=== PATIENT | female | born 1970 | race Caucasian/White ===

== ENCOUNTER 2025-04-26 13:11 | Outpatient (CLI) | payer BC, SELFPAY ==
[2025-04-26 21:37] LABS: Potassium* 4.3 mmol/L (3.6-5.1)
--- OUTSIDE RECORDS SUMMARY | 2025-04-27 00:23 | XMS_ITS | Clinical Summary ---
Author Organization [employer] [facility] Address [address] [place] [address] Care Team Providers Care Retort Cooler Name Role Phone Jimenez Cho PA-C Primary Care Provider [phone] Allergies Active Allergy Reactions Criticality Noted Date Comments Erythromycin Rash 11/28/2013 Hydrocodone-Acetaminophen Nausea And Vomiting Medium 1 12/10/2016 Oxycodone Vomiting 12/08/2013 Sulfamethoxazole-Trimethoprim Hives 2013 Sulfa (Sulfonamide Antibiotics) Hives 01/2014 Medications ascorbic acid (VITAMIN C) 500 mg tablet Take 250 mg by mouth once daily. Active CALCIUM CARBONATE (CALCIUM 500 ORAL) Take 1 Tab by mouth once daily. Active multivitamin (MVI) tablet Take 1 tablet by mouth once daily. Active ESTRADIOL (ESTRACE VAGL) Insert into the vagina. Active Cetirizine (ZYRTEC) 10 mg cap Take by mouth once daily. Active polyethylene glycol (MIRALAX) 17 g powder for solution Take 1 Packet by mouth once daily. Active alendronate sodium (ALENDRONATE ORAL) Take by mouth. 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 Family History Medical History Relation Name Comments BRCA1 Negative Maternal Aunt 1 BRCA2 Negative Maternal Aunt 1 Cancer Maternal Aunt 2 [place] c ancer (Fatou's Mother) Cancer-breast Mother n/a BRCA 1 mutatio n Cancer-ovarian Mother n/a BRCA1 Positive Other Fatou Cancer-breast Other Fatou Maternal Cousi n Cancer Paternal Grandmother Stomach BRCA1 Positive Sister 1 half sister Share a mothe r BRCA1 Negative Sister 2 half sister Share a mothe r BRCA2 Negative Sister 2 half sister Relation Name Status Comments Maternal Aunt 1 Maternal Aunt 2 Mother n/a Other Fatou Alive Paternal Grandmother Sister 1 half sister Alive Sister 2 half sister Alive Social History Tobacco Use Types Packs/Day Years Used Date Smoking Tobacco: Never Smokeless Tobacco: Never Alcohol Use Standard Drinks/Week Comments Yes 0 (1 standard drink = 0.6 oz pur e alcohol) weekly Comments Unknown Sex and Gender Information Value Date Recorded Sex Assigned at Not on file Legal Sex Female 5:29 AM POWER PLANT ENGINEER Gender Identity Not on file Sexual Orientation Not on file Occupation Industry Job Start Date Job End Date HOMEMAKER Not on file Not on file Not on file Obstetrics History Para Term AB IAB SAB Ectopic Multiple Livin g Live Births 3 3 3 Date Outcome GA Total Labor Labor/2nd/3rd Weight Sex Type Anes PTL Gabby A1 A5 Name Clin Term Term Term Comments - 3 Last Filed Vital Signs Vital Sign Reading Time Taken Comments Blood Pressure 123/59 11/09/2024 1:03 PM POWER PLANT ENGINEER Pulse 68 11/09/2024 1:03 PM POWER PLANT ENGINEER Temperature 36.8 C (98.3 F) 11/09/2024 1:03 PM POWER PLANT ENGINEER Respiratory Rate 16 07/28/2019 2:19 PM CDT Oxygen Saturation 93% 10/09/2017 3:00 PM POWER PLANT ENGINEER Inhaled Oxygen Concentration - - Weight 65.1 kg (143 lb 9.6 oz) 11/09/2024 1:03 P M POWER PLANT ENGINEER Height 162.6 cm (5' 4) 11/09/2024 1:03 PM POWER PLANT ENGINEER Body Mass Index 24.65 11/09/2024 1:03 PM POWER PLANT ENGINEER Plan of Treatment Health Maintenance Due Date Last Done Comments Tdap 1980 Depression screening for age 12+ 1981 HIV for age 15-65 1984 Hepatitis C screening for ag e 18-79 1987 Hepatitis B series for 19+ ( 1 of 3 - 19+ 3-dose series) 1988 Tetanus booster 1989 Colonoscopy through age 75 2014 Lipids for age 45-75 2014 Pap test for age 21-65 07/26/2017 4, 07/26/2014, 05/06/2011, Additional history exists Pneumococcal series for age 50+ (1 of 1 - PCV) 2019 Zoster (shingles) series for age 50+ (1 of 2) 2019 COVID-19 vaccine series ( season) 2024 10/05/2023, 11/08/2021, 01/25/2021, Additional history exists Influenza Vaccine (Season Ended) 2025 BMI (ht and wt on same day) for age 18+ 11/09/2025 11/09/2024, 07/20/2018, 06/09/2017, Additional history exists Medical Devices Implanted Type Area Clinical Dermatologist Device Identifier Shelf Expiration Date Model / Serial / Lot Mesh Md Leonel Sun Md Contour Perforated - [id number] Implanted:Qty: 1 on 04/13/2017 by Laurel Mock MD at [facility] Bilateral: Chest [employer] 01/30/2019 [id number] / / [id number] Description:RIGHT BREAST LOT # [id number] LEFT BREAST LOT # [id number] [facility] - [id number] Implanted:Qty: 1 on 10/09/2017 by Gene Bailey Cha, MD at [facility] Left: Breast [employer] - Inamed 10/26/2021 SSX-525 / [id number] / [id number] [id number] Breast Implant Implanted:Qty: 1 on 10/09/2017 by Gene Bailey Cha, MD at [facility] Right: Breast 10/24/2021 SSX-545 / / [id number] Explanted Type Area Clinical Dermatologist Device Identifier Shelf Expiration Date Model / Serial / Lot Employment Representative Breast 400cc Natrelle Tab Mod Extra Prjctn Saline - [id number] Implanted:Qty: 1 on 04/13/2017 by Laurel Mock MD at [facility] Explanted:Qty: 1 on 06/16/2017 at [facility] Right: Chest [employer] - Inamed 11/05/2020 133MX-12- T# / [id number] / Employment Representative Breast 400cc Natrelle Tab Mod Extra Prjctn Saline - [id number] Implanted:Qty: 1 on 04/13/2017 by Gene Bailey Cha, MD at [facility] Explanted:Qty: 1 on 10/09/2017 at [facility] Left: Chest [employer] - Inamed 06/17/2019 133MX-12- T# / [id number] / Employment Representative Breast 400cc Natrelle Tab Mod Extra Prjctn Saline - [id number] Implanted:Qty: 1 on 06/16/2017 by Indiana Avilez MD at [facility] Explanted:Qty: 1 on 10/09/2017 at [facility] Right: Breast [employer] - Inamed 01/20/2021 133MX-12- T# / [id number] / Description:() [id number] 2021-01-20 [id number] Natrelle 133MX-12-T Tissue Employment Representative s/Suture Tabs Biocell Moderate Height Extra Projection With Magna-Finder Xact & 21G Needle Infusion Set Procedures Procedure Name Priority Date/Time Associated Diagnosis Comments HPV HIGH RISK Timed 07/26/2014 1:40 PM CDT from Last 3 Months or Most Recently Relevant to Health Maintenance Results * HPV THIN PREP (07/26/2014 1:40 PM CDT) SPECIMEN/SOURC E Thin prep [facility] HPV RESULTS High Risk HPV Negative. HPV types 16,18,31, 33,35,39, 45,51,52, 56,58,59, 66 and 68 DNA were undetecta ble or below the pre-set threshold . Methodolo gy: Cierra Joseluis 4800 HPV Test [facility] 07/26/2014 1:40 PM CDT 07/27/2014 1:26 PM CDT us Helena Momin MICROBIOLOGY Final Result [facility] INTERNAL ZIP [address] [place] [address] from Last 3 Months or Most Recently Relevant to Health Maintenance Insurance [facility] [place] FED EMP Advance Directives * Full Code (Latest Code Status on File) Date Activated Date Inactivated Comments 10/09/2017 10:45 AM 10/09/2017 5:39 PM Question Answer Comments Code Status Discussion: Not Discussed * Full Code Date Activated Date Inactivated Comments 06/16/2017 11:14 AM 06/16/2017 2:57 PM * Full Code Date Activated Date Inactivated Comments 06/16/2017 8:51 AM 06/16/2017 11:14 AM * Full Code Date Activated Date Inactivated Comments 04/13/2017 1:51 PM 04/14/2017 5:33 PM Question Answer Comments Code Status Discussion: Not Discussed * Full Code Date Activated Date Inactivated Comments 12/08/2013 11:11 AM 12/09/2013 2:27 AM Care Teams Retort Cooler Relationship Specialty Start Date End Date Jimenez Cho PA-C [address] [place] [address] PCP - General Physician Nuclear Plant Operator 07/27/19
--- OUTSIDE RECORDS SUMMARY | 2025-04-27 00:23 | XMS_ITS | Clinical Summary ---
Author Organization [facility] Address [address] [place] [address] Care Team Providers Care Custom Garment Designer Name Role Phone [facility], [facility] Primary Care Provider Allergies Active Allergy Reactions Criticality Noted Date Comments Bactrim Rash Low 02/26/2009 Erythromycin Nausea and Vomiting 02/26/2009 Lactose Other (See Comments) 09/13/2012 diarrhea Oxycodone Nausea and Vomiting 09/13/2012 Sulfa Antibiotics Hives 09/20/2012 Medications MULTIVITAMIN ORIndications:Rou sam gynecological examination Take 1 tablet by mouth daily Active betamethasone valerate (VALISONE) 0.1 % cream Externally apply topically as needed. 9 Active fluconazole (DIFLUCAN) 150 MG tablet Take 150 mg by mouth as needed. 9 Active cetirizine (ZYRTEC) 10 MG tablet Take 10 mg by mouth daily. Active calcium carbonate-vitamin D (CALCIUM + D) 600-200 MG-UNIT TABS Take 1 tablet by mouth daily. Active ascorbic acid (VITAMIN C) 250 MG CHEW Take 1,000 mg by mouth daily. Active Placebo (COMPRESSION STOCKINGS)Indicat ions:S/P knee replacement 1 each continuous. 1 each 0 2 Active HYDROcodone-aceta minophen 5-325 MG per tabletIndications :S/P knee replacement Take 2 tablets by mouth every 6 hours as needed for pain. 60 tablet 0 2 Active Active Problems Problem Noted Date Diagnosed Date Arthritis of knee, right 09/21/2012 CARDIOVASCULAR SCREENING; LDL GOAL LESS THAN 160 09/01/2010 Resolved Problems Problem Noted Date Diagnosed Date Resolved Date Stiffness of joint, not else where classified, hand 10/09/2010 01/01/2011 Stiffness of joint, not else where classified, forearm 10/09/2010 01/01/2011 Pain in limb 10/09/2010 01/01/2011 Other closed fractures of di stal end of radius (alone) 10/09/2010 01/01/2011 Other postprocedural status(V45.89) 10/09/2010 01/01/2011 Family History Medical History Relation Comments Breast Cancer Mother Relation Status Comments Mother Social History Tobacco Use Types Packs/Day Years Used Date Smoking Tobacco: Never Smokeless Tobacco: Never Alcohol Use Standard Drinks/Week Comments Yes 0 (1 standard drink = 0.6 oz pur e alcohol) socially Adolescent Education Answer Date Record ed Getting School Help Needed Not on file 05/09 Comments No Sex and Gender Information Value Date Recorded Sex Assigned at Not on file Legal Sex Female 3:51 AM RANCH MANAGER Gender Identity Not on file Sexual Orientation Not on file Last Filed Vital Signs Vital Sign Reading Time Taken Comments Blood Pressure 91/53 09/22/2012 4:10 PM RANCH MANAGER Pulse - - Temperature 36.9 C (98.4 F) 09/22/2012 4:10 PM RANCH MANAGER Respiratory Rate 18 09/22/2012 4:48 PM RANCH MANAGER Oxygen Saturation 99% 09/22/2012 4:10 PM RANCH MANAGER Inhaled Oxygen Concentration - - Weight 59 kg (130 lb) 09/20/2012 7:00 AM RANCH MANAGER Height 162.6 cm (5' 4) 09/20/2012 7:00 AM RANCH MANAGER Body Mass Index 22.31 09/20/2012 7:00 AM RANCH MANAGER Plan of Treatment Health Maintenance Due Date Last Done Comments ADVANCE CARE PLANNING 1969 ANNUAL REVIEW OF HM ORDERS 1969 CT COLONOGRAPHY 1969 FIT 1969 FLEX SIG 1969 sDNA (Cologuard) 1969 HIV SCREENING 1984 HEPATITIS C SCREENING 1987 HEPATITIS B VACCINE (1 of 3 - 19+ 3-dose series) 1988 MAMMO SCREENING 04/03/2018 04/03/2016, 03/02, 12/20/2013, Additional history exists DTAP/TDAP/TD VACCINE (1 - Tdap) 06/01/2019 05/31/2019 PNEUMOCOCCAL VACCINE 50+ YEARS (1 of 1 - PCV) 2019 ZOSTER VACCINE (2 of 2) 09/26/2021 08/01/2021 YEARLY PREVENTIVE VISIT 07/22/2023 07/22/20, 05/21/2021, 05/21/2021, Additional history exists COVID-19 VACCINE ( season) 2024 10/05/2023, 11/08/2021, 01/25/2021, Additional history exists PHQ-2 (once per calendar year) 2024 DIABETES SCREENING 08/18/2026 08/18/2023, 1 , 09/22/2012 HPV TEST 07/22/2027 07/22/2022, 07/26/2014 PAP 07/22/2027 07/22/2022, 07/04, 02/26/2009, Additional history exists LIPID 08/18/2028 08/18/2023 COLONOSCOPY 08/23/2031 08/23/2021, 08/02/2021 COLORECTAL CANCER SCREENING 08/23/2031 INFLUENZA VACCINE Completed 08/30/2024, , 07/22/2022, Additional history exists HPV VACCINE Aged Out No longer eligi ble based on patient's age to complete this topic MENINGITIS VACCINE Aged Out No longer eligible based on patient's age to complete this topic Medical Devices Implanted Type Area Utility Spray Operator Device Identifier Shelf Expiration Date Model / Serial / Lot Bone Cement Simplex Full Dose [id number] Implanted:Qty: 1 on 09/21/2012 by Jesus Manuel MD at [facility] Right: Knee 03/01/2015 [id number] / / [id number] Imp Comp Patella Tri X3 Ps 29x8mm [id number] Implanted:Qty: 1 on 09/21/2012 by Jesus Manuel MD at [facility] Right: Knee 07/02/2017 [id number] / / [id number] Imp Comp Femoral Strk Ana Xsm Kn [id number] Implanted:Qty: 1 on 09/21/2012 by Jesus Manuel MD at [facility] Right: Knee 07/02/2017 [id number] / / [id number] Procedures Procedure Name Priority Date/Time Associated Diagnosis Comments GLUCOSE Routine 08/18/2023 9:31 AM CDT Encounter for screening for diabetes mellitus LIPID PROFILE Routine 08/18/2023 9:31 AM CDT Encounter for screening for lipoid disorders GYNECOLOGIC CYTOLOGY Routine 07/22/2022 10:48 AM CDT Encounter for gynecological examination (general) (routine) without abnormal findings [ICD-10-CM] HPV HIGH RISK TYPES DNA CERVICAL Routine 07/22/2022 10:48 AM CDT Encounter for gynecological examination (general) (routine) without abnormal findings [ICD-10-CM] MA SCREENING BILATERAL W/ BHARAT Routine 04/03/2016 1:48 PM CDT Visit for screening mammogram from Last 3 Months or Most Recently Relevant to Health Maintenance Results * Lipid Profile (08/18/2023 9:31 AM CDT) Cholesterol 169 <200 mg/dL 08/18/2023 7:39 PM CDT [facility] Triglycerides 106 <150 mg/dL 08/18/2023 7:39 PM CDT [facility] Direct Measure HDL 53 >=50 mg/dL 2022 7:39 PM CDT [facility] LDL Cholesterol Calculated 95 <=100 mg/dL 08/18/2023 7:39 PM CDT [facility] Non HDL Cholesterol 116 <130 mg/dL 08/18/2023 7:39 PM CDT [facility] Blood BLOOD SPECIMEN / Unknown Client Draw / Unknown 08/18/2023 9:31 AM CDT 08/18/2023 4:02 PM CDT Narrative [facility] - 08/18/2023 7:39 PM CDT Cholesterol Desirable: <200 mg/dL Triglycerides Normal: Less than 150 mg/dL Borderline High: 150-199 mg/dL High: 200-499 mg/dL Very High: Greater than or equal to 500 mg/dL Direct Measure HDL Female: Greater than or equal to 50 mg/dL Male: Greater than or equal to 40 mg/dL LDL Cholesterol Desirable: <100mg/dL Above Desirable: 100-129 mg/dL Borderline High: 130-159 mg/dL High: 160-189 mg/dL Very High: >= 190 mg/dL Non HDL Cholesterol Desirable: 130 mg/dL Above Desirable: 130-159 mg/dL Borderline High: 160-189 mg/dL High: 190-219 mg/dL Very High: Greater than or equal to 220 mg/dL Kendy Landeros MD LAB - BLOOD ORDERABLES Final Result LABORATORY [facility] [place] [facility] [address] [facility], [address] [place] [address], [facility] [phone] * Glucose (08/18/2023 9:31 AM CDT) Glucose 73 70 - 99 mg/dL 08/18/2023 7:39 PM CDT [facility] Patient Fasting > 8hrs? Yes 08/18/2023 7:39 PM CDT [facility] Blood BLOOD SPECIMEN / Unknown Client Draw / Unknown 08/18/2023 9:31 AM CDT 08/18/2023 4:02 PM CDT us Kendy Landeros MD LAB - BLOOD ORDERABLES Final Result Performing Organization Address City/[facility]/ZIP Co de Phone Number LABORATORY [facility] [place] [facility] [address] [facility], [address] [place] [address], [facility] [phone] * Gynecologic Cytology (PAP) (07/22/2022 10:48 AM CDT) Interpretation Negative for Intraepithelial Lesion or Malignancy (NILM) 07/24/2022 3:28 PM CDT [facility] at 1528 CDT Comment Papanicolaou Test Limitations: Cervical cytology is a screening test with limited sensitivity, and regular screening is critical for cancer prevention. Pap tests are primarily effective for the diagnosis/prevent ion of squamous cell carcinoma, not adenocarcinoma or other cancers. 07/24/2022 3:28 PM CDT [facility] Specimen Adequacy Satisfactory for evaluation, endocervical/langley sformation zone component present 07/24/2022 3:28 PM CDT [facility] Clinical Information none 07/24/2022 3:28 PM CDT [facility] LMP/Menopause Date N/A 07/24/2022 3:28 PM CDT [facility] Reflex Testing Yes regardless of result 07/24/2022 3:28 PM CDT [facility] Previous Abnormal? No 07/24/2022 3:28 PM CDT [facility] Previous Abnormal Diagnosis N/A 07/24/2022 3:28 PM CDT [facility] Performing Labs The technical component of this testing was completed at [facility] 07/24/2022 3:28 PM CDT [facility] Brushing CERVIX UTERI STRUCTURE / Unknown 07/22/2022 10:48 AM CDT 07/22/2022 3:51 PM CDT Kendy Landeros MD LAB - WILLY KRAFT Final Result [facility] Specialty Lab [address] [facility], [address] [place] [address], [facility] [phone] * HPV High Risk Types DNA Cervical (07/22/2022 10:48 AM CDT) Other HR HPV Negative Negative 07/28/2022 2:13 PM CDT [facility] HPV16 DNA Negative Negative 07/28/2022 2:13 PM CDT [facility] HPV18 DNA Negative Negative 07/28/2022 2:13 PM CDT [facility] FINAL DIAGNOSIS This patient's sample is negative for HPV DNA. This test was developed and its performance characteristics determined by the [facility], [facility]. It has not been cleared or approved by the FDA. The laboratory is regulated under CLIA as qualified to perform high-complexity testing. This test is used for clinical purposes. It should not be regarded as investigational or for research. METHODOLOGY: The Cierra Joseluis 4800 system uses automated extraction, simultaneous amplification of HPV (L1 region) and beta-globin, followed by real time detection of fluorescent labeled HPV and beta globin using specific oligonucleotide probes. The test specifically identifies types HPV 16 DNA and HPV 18 DNA while concurrently detecting the rest of the high risk types (31, 33, 35, 39, 45, 51, 52, 56, 58, 59, 66 or 68). COMMENTS: This test is not intended for use as a screening device for woman under age 30 with normal cervical cytology. Results should be correlated with cytologic and histologic findings. Close clinical followup is recommended. 07/28/2022 2:13 PM CDT [facility] Brushing CERVIX UTERI STRUCTURE / Unknown Non-blood Collection / Unknown 07/22/2022 10:48 AM CDT 07/25/2022 8:58 AM CDT us Kendy Landeros MD LAB - BLOOD ORDERABLES Final Result [facility] [address] [facility], [address] [place] [address], [facility] [phone] * MA Screen Bilateral w/Bharat (04/03/2016 1:48 PM CDT) Anatomical Region Laterality Modality Breast Bilateral Mammography Impressions 04/03/2016 2:03 PM CDT IMPRESSION: BI-RADS CATEGORY: 1 - NEGATIVE. RECOMMENDED FOLLOW-UP: Annual Mammography Exam results letter mailed to patient. VANESA MANZANARES MD Narrative 04/03/2016 2:03 PM CDT SCREENING MAMMOGRAM, BILATERAL, DIGITAL w/CAD w/TOMOSYNTHESIS - 04/03/2016 1:48 PM. BREAST SYMPTOMS: No current breast complaints. COMPARISON: 03/15/2015, 06/16/2011. BREAST DENSITY: Scattered fibroglandular densities. COMMENTS: No findings of suspicion for malignancy. Procedure Note Vanesa Manzanares MD - 04/03/2016 SCREENING MAMMOGRAM, BILATERAL, DIGITAL w/CAD w/TOMOSYNTHESIS - 04/03/2016 1:48 PM. BREAST SYMPTOMS: No current breast complaints. COMPARISON: 03/15/2015, 06/16/2011. BREAST DENSITY: Scattered fibroglandular densities. COMMENTS: No findings of suspicion for malignancy. IMPRESSION: BI-RADS CATEGORY: 1 - NEGATIVE. RECOMMENDED FOLLOW-UP: Annual Mammography Exam results letter mailed to patient. VANESA MANZANARES MD Sue Queen MD IMG MAMMOGRAPHY ORDERABLES Final Result from Last 3 Months or Most Recently Relevant to Health Maintenance Insurance [facility] FEDERAL EM[employer]OYEE PROGRAM [facility] [employer]EE PROGRAM [facility] [employer]EE PRO[employer] COMMERCIAL Advance Directives For more information, please contact: [phone] * Full Code (Latest Code Status on File) Date Activated Date Inactivated Comments 09/21/2012 5:16 PM 09/22/2012 9:37 PM Care Teams Custom Garment Designer Relationship Specialty Start Date End Date Clinic, [address] [address] PCP - General 11/11/16
--- OUTSIDE RECORDS SUMMARY | 2025-04-27 00:23 | XMS_ITS | Encounter Summary ---
Author Organization [facility] Address [address], [place] [address] Care Team Providers Care Livestock Counter Name Role Phone Sue Queen MD Primary Care Provider [phone] Encounter Details Date Type Department Care Team (Late st Contact Info) Description 03/22/2018 Correspondence External to External, [place] [address] [facility] Social History Tobacco Use Types Packs/Day Years Used Date Smoking Tobacco: Never Smokeless Tobacco: Never Alcohol Use Standard Drinks/Week Comments Yes 0 (1 standard drink = 0.6 oz pur e alcohol) occ Comments Unknown Sex and Gender Information Value Date Recorded Sex Assigned at Not on file Legal Sex Female 3:49 PM REPAIR OPERATOR Gender Identity Not on file Sexual Orientation Not on file documented as of this encounter Plan of Treatment Not on file documented as of this encounter Visit Diagnoses Not on filedocumented in this encounter Care Teams Livestock Counter Relationship Specialty Start Date End Date Sue Queen MD [address] [facility] [address] [place] [address] PCP - General Hematology/Oncology 12/18/16 documented as of this encounter
--- OUTSIDE RECORDS SUMMARY | 2025-04-27 00:23 | XMS_ITS | Encounter Summary ---
Author Organization [facility] Address [address] [address] Care Team Providers Care Hospital Housekeeper Name Role Phone Sue Queen MD Primary Care Provider [phone] Encounter Details Date Type Department Care Team (Late st Contact Info) Description 10/09/2017 Outside Hospital External to [facility], Provider OPERATIVE REPORT Social History Tobacco Use Types Packs/Day Years Used Date Smoking Tobacco: Never Smokeless Tobacco: Never Alcohol Use Standard Drinks/Week Comments Yes 0 (1 standard drink = 0.6 oz pur e alcohol) occ Comments Unknown Sex and Gender Information Value Date Recorded Sex Assigned at Not on file Legal Sex Female 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
--- OUTSIDE RECORDS SUMMARY | 2025-04-27 00:23 | XMS_ITS | Clinical Summary ---
Author Organization [facility] Address [address] [address] Care Team Providers Care Industrial Technology Teacher Name Role Phone Sue Queen MD Primary Care Provider [phone] Source Comments You are receiving this document as you are listed as the primary care provider,follow-up provider, or the patient has been referred to you for consultation.This is in compliance with the Medicare and[facility] Hospital[facility] EHR Incentive Program,which states Providers who transition their patient to another setting of careor provider of care or refers their patient to another provider of care shouldprovide summary care record for each transition of care or referral. [facility] Allergies Active Allergy Reactions Criticality Noted Date Comments Erythromycin Nausea And Vomiting,Rash 4 Hydrocodone-Acetaminophen Nausea And Vomiting Medium 1 12/10/2016 Oxycodone Other, see comments 12/08/2013 Sulfa Antibiotics Hives High 12/06/2013 Sulfamethoxazole-Trimethopri m Hives High 11/28/2013 Medications ESTRACE VAGINAL 0.1 MG/GM vaginal cream 1 APPLICATORFU L, PER VAGINA, DAILY DIRECTED. INSTRUCTIONS : USE SPARING ONCE WEEKLY 3 12/30/2016 Active MULTIPLE VITAMIN OR Active calcium carbonate (OS-CIRILO 500) 1250 (500 CA) MG tablet Take by mouth. Active ibuprofen (MOTRIN) 600 MG tablet Take 600 mg by mouth. 04/14/2017 Active ascorbic acid 500 MG tablet Take 250 mg by mouth. Active Cetirizine HCl (ZYRTEC) 10 MG CAPS Take 10 mg by mouth. Active Social History Tobacco Use Types Packs/Day Years Used Date Smoking Tobacco: Never Smokeless Tobacco: Never Alcohol Use Standard Drinks/Week Comments Yes 0 (1 standard drink = 0.6 oz pur e alcohol) occ Comments Unknown Sex and Gender Information Value Date Recorded Sex Assigned at Not on file Legal Sex Female 3:49 PM SUPERVISOR MILL Gender Identity Not on file Sexual Orientation Not on file Last Filed Vital Signs Vital Sign Reading Time Taken Comments Blood Pressure - - Pulse - - Temperature - - Respiratory Rate - - Oxygen Saturation - - Inhaled Oxygen Concentration - - Weight 53.5 kg (118 lb) 01/07/2017 2:54 PM SUPERVISOR MILL Height 162.6 cm (5' 4) 01/07/2017 2:54 PM SUPERVISOR MILL Body Mass Index 20.25 01/07/2017 2:54 PM SUPERVISOR MILL Plan of Treatment Health Maintenance Due Date Last Done Comments Cervical Cancer Screening Due 1969 Colon Cancer Screening Plan Due 1969 Hep C Screening (Preventive Services) 1969 Mammogram 1969 HIV Screening (Preventive Services) 1985 Adult Preventive Visit 1987 HepB Vaccine (1) 1988 Cholesterol 2014 DTaP/Tdap/Td Vaccine (1 - Tdap) 06/01/2019 05/31/2019 Pneumococcal Vaccine 50+ Yrs (1 of 1 - PCV) 2019 Zoster/Shingles Vaccine (1 of 2) 2019 COVID-19 Vaccine (3 - season) 2024 01/25/2021, 12/28/2020 Influenza Vaccine (Season Ended) 2025 07/28/2019, 08/08/2017, 08/02/2016, Additional history exists HepA Vaccine Aged Out No longer eligi ble based on patient's age to complete this topic Hib Vaccine Aged Out No longer eligi ble based on patient's age to complete this topic IPV (Polio) Vaccine Aged Out No longe r eligible based on patient's age to complete this topic MCV4 Vaccine Aged Out No longer eligi ble based on patient's age to complete this topic Meningococcal B Vaccine Aged Out No l onger eligible based on patient's age to complete this topic Insurance [facility] Care Teams Industrial Technology Teacher Relationship Specialty Start Date End Date Sue Queen MD [address] [facility] [address] [place] [address] PCP - General Hematology/Oncology 12/18/16
--- OUTSIDE RECORDS SUMMARY | 2025-04-27 00:23 | XMS_ITS | Encounter Summary ---
Author Organization [facility] Address [address] [address] Care Team Providers Care Lapeler Name Role Phone Sue Queen MD Primary Care Provider [phone] Encounter Details Date Type Department Care Team (Late st Contact Info) Description 03/22/2018 Correspondence External to External, [place] [address] APPROVAL NOTICE Social History Tobacco Use Types Packs/Day Years Used Date Smoking Tobacco: Never Smokeless Tobacco: Never Alcohol Use Standard Drinks/Week Comments Yes 0 (1 standard drink = 0.6 oz pur e alcohol) occ Comments Unknown Sex and Gender Information Value Date Recorded Sex Assigned at Not on file Legal Sex Female 3:49 PM WIRE GALVANIZER Gender Identity Not on file Sexual Orientation Not on file documented as of this encounter Plan of Treatment Not on file documented as of this encounter Visit Diagnoses Not on filedocumented in this encounter Care Teams Lapeler Relationship Specialty Start Date End Date Sue Queen MD [address] [facility] [address] [place] [address] PCP - General Hematology/Oncology 12/18/16 documented as of this encounter
--- OUTSIDE RECORDS SUMMARY | 2025-04-27 00:24 | XMS_ITS | Encounter Summary ---
Author Organization [facility] Address [address], [place] [address] Care Team Providers Care Continuous Pickling Line Pickler Helper Name Role Phone Sue Queen MD Primary Care Provider [phone] Encounter Details Date Type Department Care Team (Late st Contact Info) Description 04/13/2017 Outside Hospital External to [facility], Provider OPERATIVE REPORT Social History Tobacco Use Types Packs/Day Years Used Date Smoking Tobacco: Never Alcohol Use Standard Drinks/Week Comments Yes 0 (1 standard drink = 0.6 oz pur e alcohol) occ Comments Unknown Sex and Gender Information Value Date Recorded Sex Assigned at Not on file Legal Sex Female 3:49 PM WAGON WINDER Gender Identity Not on file Sexual Orientation Not on file documented as of this encounter Plan of Treatment Not on file documented as of this encounter Visit Diagnoses Not on filedocumented in this encounter Care Teams Continuous Pickling Line Pickler Helper Relationship Specialty Start Date End Date Sue Queen MD [address] [facility] [address] [place] [address] PCP - General Hematology/Oncology 12/18/16 documented as of this encounter
--- OUTSIDE RECORDS SUMMARY | 2025-04-27 00:24 | XMS_ITS | Encounter Summary ---
Author Organization [facility] Address [address] [address] Care Team Providers Care Firer Electric Locomotive Name Role Phone Sue Queen MD Primary Care Provider [phone] Encounter Details Date Type Department Care Team (Late st Contact Info) Description 06/16/2017 Outside Hospital External to [facility], Provider OPERATIVE REPORT Social History Tobacco Use Types Packs/Day Years Used Date Smoking Tobacco: Never Alcohol Use Standard Drinks/Week Comments Yes 0 (1 standard drink = 0.6 oz pur e alcohol) occ Comments Unknown Sex and Gender Information Value Date Recorded Sex Assigned at Not on file Legal Sex Female 3:49 PM GIFT SHOP CLERK Gender Identity Not on file Sexual Orientation Not on file documented as of this encounter Plan of Treatment Not on file documented as of this encounter Visit Diagnoses Not on filedocumented in this encounter Care Teams Firer Electric Locomotive Relationship Specialty Start Date End Date Sue Queen MD [address] [facility] [address] [place] [address] PCP - General Hematology/Oncology 12/18/16 documented as of this encounter
== END 2025-04-26 13:12 | disposition home or self-care (01) ==
LOC: NPINS 13:12
PROVIDERS: Visit Provider Physician Assistant
DX: L70.0 Acne vulgaris (principal); B07.8 Other viral warts
CPT/HCPCS: 84132